=== PATIENT | male | born 1990 | race American Indian/Alaskan Native ===

== ENCOUNTER 2018-02-08 16:54 | Emergency (ER) | payer BC, OTHER ==
[2018-02-08 17:46] VITALS: RESP 18; TEMP 98.3; BMI 37.2
--- NOTE | 2018-02-08 18:32 | ED PDOC ---
Arrival/HPI - General Chief Complaint: Medical Clearance Time Seen by Provider: 02/08/18 18:12 Historian: Patient - History of Present Illness Narrative History of Present Illness (Text): 02/08/18 18:43 27yr old male presents today with concerns for std. pt states he received a call from his sexual partner that she was just diagnosed with herpes. pt denies pain, lesions, penile discharge or testicular pain. pt denies abdominal pain. no n/v/d/c/. no dizziness or weakness. pt denies prior hx of std. pt states he just wants to be tested. Past Medical History - Provider Review Nursing Documentation Reviewed: Yes - Travel History Have you recently traveled outside [place] w/in the past 3 mons?: No - Infectious Disease Hx of Infectious Diseases: None - Tetanus Immunization Tetanus Immunization: Unknown - Past Medical History Past Medical History: No Previous - Cardiac Hx Cardiac Disorders: No - Pulmonary Hx Respiratory Disorders: No - Neurological Hx Neurological Disorder: No - HEENT Hx HEENT Disorder: No - Renal Hx Renal Disorder: No - Endocrine/Metabolic Hx Endocrine Disorders: No - Hematological/Oncological Hx Blood Disorders: No - Integumentary Hx Dermatological Disorder: No - Musculoskeletal/Rheumatological Hx Back Pain: Yes Other/Comment: knee pain right side - Gastrointestinal Hx Gastrointestinal Disorders: No - Genitourinary/Gynecological Hx Genitourinary Disorders: No - Psychiatric Hx Psychophysiologic Disorder: No Hx Substance Use: No - Past Surgical History Past Surgical History: No Previous - Anesthesia Hx Anesthesia: No Hx Anesthesia Reactions: No Hx Malignant Hyperthermia: No - Suicidal Assessment Feels Threatened In Home Enviroment: No Family/Social History - Physician Review Nursing Documentation Reviewed: Yes Family/Social History: Unknown Family HX Smoking Status: Never Smoked Hx Alcohol Use: No Hx Substance Use: No Hx Substance Use Treatment: No Allergies/Home Meds Allergies/Adverse Reactions: Allergies No Known Allergies Allergy (Verified 02/08/18 17:46) Home Medications: Home Meds Medication Instructions Recorded Confirmed No Known Home Med 02/08/18 02/08/18 Review of Systems - Review of Systems Constitutional: absent: Fatigue, Fevers Respiratory: absent: SOB, Cough Cardiovascular: absent: Chest Pain, Palpitations Gastrointestinal: absent: Abdominal Pain, Constipation, Diarrhea, Nausea, Vomiting Genitourinary Male: Other (no testicular pain, no penile discharge. ). absent: Dysuria, Frequency, Hematuria Musculoskeletal: absent: Arthralgias, Back Pain, Neck Pain Skin: absent: Rash, Pruritis Neurological: absent: Headache, Dizziness Physical Exam Vital Signs Reviewed: Yes Vital Signs Temp Pulse Resp BP Pulse Ox 02/08/18 17:45 98.3 F 93 H 18 147/88 97 Temperature: Afebrile Blood Pressure: Normal Pulse: Regular Respiratory Rate: Normal Appearance: Positive for: Well-Appearing, Non-Toxic, Comfortable Pain Distress: None Mental Status: Positive for: Alert and Oriented X 3 - Systems Exam Head: Present: Atraumatic Mouth: Present: Moist Mucous Membranes Neck: Present: Normal Range of Motion Respiratory/Chest: Present: Clear to Auscultation Cardiovascular: Present: Regular Rate and Rhythm Abdomen: Present: Tenderness. No: Rebound, Guarding Genitourinary Male: Present: Normal External Genitalia, Other (chaparoned by Angel AMARO). No: Circumcised Penis, Lesions, Penile Discharge, Testicle Tenderness, Penile Swelling, Erythema, Testicle Swelling Medical Decision Making ED Course and Treatment: 02/08/18 18:46 Patient is nontoxic well-appearing in no distress with stable vital signs pt states he wants to be treated electrically for possible STD exposure. Ceftriaxone 250 mg IM Zithromax 1 g p.o. given Gonorrhea and Chlamydia cultures are pending. Advised patient to refrain from sex for 10 days followup with the primary care physician within the next 2 days or return if symptoms worsen persist or if new symptoms develop. Patient verbalizes understanding of discharge instructions and need for immediate followup. all aspects of this case were discussed the attending of record. Impression: std exposure Follow up primary care physician within the next 2 days Return if symptoms worsen persist or if new symptoms develop. Disposition/Present on Arrival - Present on Arrival Any Indicators Present on Arrival: No History of DVT/PE: No History of Uncontrolled Diabetes: No Urinary Catheter: No History of Decub. Ulcer: No History Surgical Site Infection Following: None - Disposition Have Diagnosis and Disposition been Completed?: Yes Diagnosis: STD exposure Disposition: HOME/ ROUTINE Disposition Time: 18:25 Patient Plan: Discharge Patient Problems: Current Active Problems Problem Status Onset STD exposure Acute Condition: GOOD Discharge Instructions (ExitCare): Sexually-Transmitted Diseases (DC) Additional Instructions: Follow up primary care physician within the next 2 days Return if symptoms worsen persist or if new symptoms develop. Referrals: Alka Henson MD [Medical Doctor] - Follow up with primary [facility] [Outside] - Follow up with primary
[2018-02-08] MEDS ORDERED: cefTRIAXone (Rocephin) 250 mg Inj IM STA (18:44)
[2018-02-08 20:21] VITALS: BP 127/78; PULSE 88; O2SAT 98
== END 2018-02-08 20:00 | disposition home or self-care (01) ==
LOC: ED 16:54
DX: Z20.2 Contact with and (suspected) exposure to infections with a predominantly sexual mode of transmission (principal)
CPT/HCPCS: 87491; 87591; 96372; 99282; J0696